=== PATIENT | female | born 1955 ===

== ENCOUNTER 2019-04-20 17:50 | Emergency (ER) | payer OTHER ==
--- NOTE | 2019-04-20 18:11 | NUR ---
NO ANSWER X 1 TO LOBBY.
--- NOTE | 2019-04-20 18:22 | NUR ---
NO ANSWER X 2
--- NOTE | 2019-04-20 18:35 | NUR ---
NO ANSWER X 3 TO TRIAGE.
== END 2019-04-20 18:38 | disposition left against medical advice (07) ==
LOC: ED 18:27
DX: K92.2 Gastrointestinal hemorrhage, unspecified (principal); Z53.21 Procedure and treatment not carried out due to patient leaving prior to being seen by health care provider